=== PATIENT | female | born 2000 | race Caucasian/White ===

== ENCOUNTER 2024-10-30 21:25 | Emergency (ER) | payer OTHER ==
[2024-10-30 21:56] VITALS: BMI 28.3
[2024-10-30] MEDS ORDERED: ACETAMINOPHEN 325 MG TABLET (FP) ONE (22:24)
[2024-10-30] MEDS: ACETAMINOPHEN 500 MG TABLET (FP) PO ONE (22:27)
[2024-10-31 00:07] VITALS: BP 113/73; PULSE 81; RESP 20; TEMP 98.2
== END 2024-10-31 00:55 | disposition home or self-care (01) ==
LOC: JER 21:25
DX: O99.513 Diseases of the respiratory system complicating pregnancy, third trimester (principal); J06.9 Acute upper respiratory infection, unspecified; O99.891 Other specified diseases and conditions complicating pregnancy; R07.89 Other chest pain; R09.81 Nasal congestion; R05.9 Cough, unspecified; O21.2 Late vomiting of pregnancy; Z3A.29 29 weeks gestation of pregnancy
CPT/HCPCS: 0241U-QW; 93005; 93010; 99284-25